=== PATIENT | male | born 1955 | race Caucasian/White ===

== ENCOUNTER 2017-03-16 08:32 | Emergency (ER) | payer BC ==
[2017-03-16 08:56] LABS: #Basophils 0.1 thou/uL (0.0-0.2); #Eosinphils 0.2 thou/uL (0.0-0.7); #Monocytes 0.6 thou/uL (0.11-0.59); #Neutrophils 4.7 thou/uL (1.40-6.50); %Eosinophils 2.5 % (0.0-10.0); %Lymphocytes 15.1 % (21.0-51.0); %Monocytes 9.1 % (0.0-10.0); %Neutrophils 72.3 % (42.0-75.0); Mean Corpuscular HGB CONC 35.3 g/dL (32.0-36.0); Mean Corpuscular Hemoglobin 31.3 pg (27.0-31.0); Mean Corpuscular Volume 88.7 fl (80.0-94.0); Mean Platelet Volume 6.2 fL (7.4-10.4); Platelet Count 199 thou/uL (130-400); RBC Distribution Width 10.7 % (11.5-14.5); Red Blood Cell (RBC) Count 5.43 mill/uL (4.70-6.10); White Blood Cell (WBC) Count 6.5 thou/uL (4.8-10.8)
[2017-03-16] MEDS ORDERED: Nitroglycerin 0.4 MG TAB (25 Tab Bottle) ONE (09:01)
[2017-03-16 09:12] LABS: CKMB 0.8 ng/mL (0-6.6); Troponin I Less than 0.010 ng/mL (< 0.028)
[2017-03-16] MEDS ORDERED: Atropine Sulfate 1 mg/10 ml Syringe ONE (09:14)
[2017-03-16 09:15] LABS: ALT (SGPT) 24 U/L (8-55); AST (SGOT) 19 U/L (5-34); Albumin 4.5 g/dL (3.4-4.8); Alkaline Phosphatase 61 U/L (40-150); Anion Gap 13 mmol/L (10-20); BUN (Urea Nitrogen) 16 mg/dL (8.4-25.7); Bilirubin, Total 1.2 mg/dL (0.2-1.2); Calc. Creatinine Clearance 0 mL/min (70-130); Calcium 9.4 mg/dL (7.8-10.44); Carbon Dioxide 23 mmol/L (23-31); Chloride 107 mmol/L (98-107); Estimated GFR-MDRD 78; Globulin 2.8 g/dL (2.4-3.5); Glucose 99 mg/dL (80-115); Lipase 15 U/L (8-78); Potassium 3.8 mmol/L (3.5-5.1); Protein, Total 7.3 g/dL (5.8-8.1); Sodium 139 mmol/L (136-145)
== END 2017-03-16 09:56 | disposition short-term general hospital (02) ==
LOC: BURERS 08:32
DX: I46.9 Cardiac arrest, cause unspecified (principal); I49.5 Sick sinus syndrome
CPT/HCPCS: 36415; 80053; 82553; 83690; 84484; 85025; 93005; 96365; J0461

== ENCOUNTER 2017-04-02 10:23 | Outpatient (CLI) | payer BC ==
[2017-04-02 14:51] LABS: Cardiac Risk 5.6 (Less than 4.5)
== END 2017-04-02 10:24 | disposition home or self-care (01) ==
LOC: HPCALD 10:23
PROVIDERS: ATTEND Family Medicine
DX: I46.9 Cardiac arrest, cause unspecified (principal)
CPT/HCPCS: 36415; 80061

== ENCOUNTER 2018-12-27 16:30 | Outpatient (CLI) | payer OTHER ==
--- NOTE | 2018-12-27 18:37 | RAD ---
THORACIC SPINE: 12/27/2018 COMPARISON: No prior films are available for comparison. TECHNIQUE: AP and lateral views are provided. FINDINGS: There is mild levoscoliosis of the mid to lower thoracic spine. No fracture, vertebral compression, or disk space narrowing is seen. There is no osteolytic or osteoblastic lesion of the spine. Dense calcification of nodes in the aorticopulmonary window was noted, probably from prior granulomatous ex posure. The visible portions of the lungs are clear. IMPRESSION: Mild scoliosis but no acute bony findings. POS: HOME
--- NOTE | 2018-12-27 18:40 | RAD ---
CERVICAL SPINE THREE VIEWS: 12/27/2018 FINDINGS: There is mild loss of the normal cervical lordosis, which may be due to muscle spasm. No fracture, d islocation, or disk space narrowing is seen. Degenerative changes are not at all impressive for age. No bony destructive lesions are seen. IMPRESSION: Mild straightening of the cervical spine. Examination otherwise unremarkable. POS: HOME
== END 2018-12-27 16:31 | disposition home or self-care (01) ==
LOC: BURRAD 16:30
PROVIDERS: ATTEND Family Medicine
DX: M54.6 Pain in thoracic spine (principal); M41.9 Scoliosis, unspecified
CPT/HCPCS: 72040; 72070